=== PATIENT | male | born 1960 | race Caucasian/White ===

== ENCOUNTER → 2020-12-23 | Outpatient (CLI) | payer MEDICARE, OTHER ==
[~2020-12-23] MED LIST: ACCUPRIL40 MG PO; ALLEGRA ALLERG180 MG PO; ALLERGY RELIEF5 MG PO; ASPIRIN81 MG PO; COREG 25MG TAB25 MG PO; CRESTOR10 MG PO; ELIQUIS5 MG PO; FARXIGA10 MG PO; GLUCOPHAGE 500500 MG PO; HYDROCODON-ACE1 EAC4 PO; LASIX40 MG PO; LEVOFLOXACIN750 MG PO; MONTELUKAST SOD10 MG PO; NITROSTAT 0.4100 TAB SL; SOTALOL120 MG PO; VALSARTAN160 MG PO
== END ==
LOC: HEART 5 13:00
DX: I50.22 Chronic systolic (congestive) heart failure (principal); I42.9 Cardiomyopathy, unspecified; R93.1 Abnormal findings on diagnostic imaging of heart and coronary circulation
CPT/HCPCS: 78472; A9560

== ENCOUNTER → 2021-03-31 | Outpatient (CLI) | payer MEDICARE, OTHER | LOC: HEART 5 13:00 | DX: I42.9 Cardiomyopathy, unspecified (principal); I50.22 Chronic systolic (congestive) heart failure; R94.39 Abnormal result of other cardiovascular function study | CPT/HCPCS: 78472; A9560 ==

== ENCOUNTER → 2021-05-07 | Outpatient (CLI) | payer MEDICARE, OTHER ==
[2021-05-07 09:36] LABS: HEMOGLOBIN 15.6 gm/dl (14.0-17.5); RED BLOOD COUNT 5.45 M/UL (4.20-5.50); WHITE BLOOD COUNT 7.4 K/UL (4.5-11.0)
[2021-05-07 09:53] LABS: BUN/CREATININE RATIO 17 (0-10)
== END ==
LOC: LAB 08:14
PROVIDERS: Internal Medicine Cardiovascular Disease
DX: I42.0 Dilated cardiomyopathy (principal); I50.22 Chronic systolic (congestive) heart failure; R00.2 Palpitations
CPT/HCPCS: 36415; 71046; 80048; 85025; U0003

== ENCOUNTER 2021-05-09 07:22 | Outpatient (CLI) | payer MEDICARE, OTHER ==
[~2021-05-09] VITALS: Ht 195.6 cm; Wt 132.9 kg
[~2021-05-09 07:22] MED LIST changes: -ALLEGRA ALLERG180 MG PO; -ALLERGY RELIEF5 MG PO; -FARXIGA10 MG PO; -GLUCOPHAGE 500500 MG PO; -HYDROCODON-ACE1 EAC4 PO; -LASIX40 MG PO; -LEVOFLOXACIN750 MG PO; -MONTELUKAST SOD10 MG PO; -VALSARTAN160 MG PO
[2021-05-09] MEDS ORDERED: GLUCOPHAGE 500500 MG PO (08:34)
[2021-05-09] MEDS ORDERED: ALLEGRA ALLERG180 MG PO (08:34)
[2021-05-09] MEDS ORDERED: VALSARTAN160 MG PO (08:35)
[2021-05-09] MEDS ORDERED: MONTELUKAST SOD10 MG PO (08:35)
[2021-05-09] MEDS ORDERED: FARXIGA10 MG PO (08:36)
[2021-05-09] MEDS ORDERED: ALLERGY RELIEF5 MG PO (08:36)
[2021-05-09] MEDS ORDERED: LASIX40 MG PO (08:37)
[2021-05-09] MEDS ORDERED: HYDROCODON-ACE1 EAC4 PO (10:09)
[2021-05-09] MEDS ORDERED: LEVOFLOXACIN750 MG PO (10:09)
== END 2021-05-10 15:13 | disposition home or self-care (01) ==
LOC: CATH 07:22 → M/S 12:21 → CATH 05-10 15:13
DX: I42.0 Dilated cardiomyopathy (principal); I11.0 Hypertensive heart disease with heart failure; I50.22 Chronic systolic (congestive) heart failure; I48.0 Paroxysmal atrial fibrillation; I49.5 Sick sinus syndrome; E78.5 Hyperlipidemia, unspecified; K21.9 Gastro-esophageal reflux disease without esophagitis; I27.20 Pulmonary hypertension, unspecified; G47.30 Sleep apnea, unspecified; Z88.8 Allergy status to other drugs, medicaments and biological substances; Z79.01 Long term (current) use of anticoagulants; Z79.84 Long term (current) use of oral hypoglycemic drugs; Z79.899 Other long term (current) drug therapy
CPT/HCPCS: 33249; 71045; 82962; 93641; 99152; 99153; C1721; C1777; C1898; J1200; J1644; J2250; J2550; J3010; J3370; J7040; J7050; J7070; Q9965

== ENCOUNTER 2022-03-21 01:20 | Emergency (ER) | payer MEDICARE ==
[~2022-03-21 01:20] MED LIST changes: +ALLEGRA ALLERG180 MG PO; +ALLERGY RELIEF5 MG PO; +FARXIGA10 MG PO; +GLUCOPHAGE 500500 MG PO; +HYDROCODON-ACE1 EAC4 PO; +LASIX40 MG PO; +LEVOFLOXACIN750 MG PO; +MONTELUKAST SOD10 MG PO; +VALSARTAN160 MG PO
[2022-03-21 02:01] LABS: HEMOGLOBIN 16.1 gm/dl (14.0-17.5); RED BLOOD COUNT 5.65 M/UL (4.20-5.50); WHITE BLOOD COUNT 8.7 K/UL (4.5-11.0)
[2022-03-21 02:29] LABS: BUN/CREATININE RATIO 18 (0-10)
== END 2022-03-21 03:15 | disposition home or self-care (01) ==
LOC: ER1 01:20
PROVIDERS: Family Medicine
DX: I42.8 Other cardiomyopathies (principal); I48.91 Unspecified atrial fibrillation; E11.9 Type 2 diabetes mellitus without complications; I50.9 Heart failure, unspecified; Z95.0 Presence of cardiac pacemaker; Z79.01 Long term (current) use of anticoagulants
CPT/HCPCS: 71045; 80053; 82550; 82553; 83735; 84439; 84443; 84484; 85025; 93005; 99284